=== PATIENT | female | born 1975 ===

== ENCOUNTER 2019-03-15 04:59 | Emergency (ER) | payer SELFPAY ==
[~2019-03-15] VITALS: Ht 170.2 cm; Wt 69.4 kg
[2019-03-15 05:04] VITALS: BP 121/89
--- NOTE | 2019-03-15 05:11 | NUR ---
DR HERNANDEZ IN TRIAGE TO [facility]. PT HAS HX OF NUMEROUS ER VISITS FOR PAIN MEDICATION REQUESTS AND HE REPORTS HE CAN PROVIDE HER WITH IBUPROFEN. PT GOT ANGRY AND LEFT THE TRIAGE ROOM AND FOLLOWED.
== END 2019-03-15 05:33 | disposition home or self-care (01) ==
LOC: ER 05:01
DX: G89.29 Other chronic pain (principal); M54.9 Dorsalgia, unspecified; M54.2 Cervicalgia; Z76.5 Malingerer [conscious simulation]; Z85.841 Personal history of malignant neoplasm of brain; Z85.89 Personal history of malignant neoplasm of other organs and systems; Z88.8 Allergy status to other drugs, medicaments and biological substances
CPT/HCPCS: 99281

== ENCOUNTER 2019-03-15 20:54 | Emergency (ER) | payer SELFPAY ==
--- NOTE | 2019-03-15 21:19 | NUR ---
PT STORMED OUT OF ED WHILE IN TRIAGE
== END 2019-03-15 21:21 | disposition home or self-care (01) ==
LOC: ER 20:54
DX: S60.221A Contusion of right hand, initial encounter (principal); G89.29 Other chronic pain; Z76.5 Malingerer [conscious simulation]; Z88.6 Allergy status to analgesic agent; W22.8XXA Striking against or struck by other objects, initial encounter; Y93.89 Activity, other specified; Y92.89 Other specified places as the place of occurrence of the external cause; Y99.8 Other external cause status
CPT/HCPCS: 99281